=== PATIENT | male | born 1995 | race Two or more races ===

== ENCOUNTER → 2020-12-30 13:38 | Outpatient (BNVA) | payer MEDICAID, SELFPAY | PROVIDERS: PCP Internal Medicine ==

== ENCOUNTER → 2020-12-31 08:03 | Outpatient (BNVA) | payer MEDICAID, SELFPAY | PROVIDERS: PCP Internal Medicine; Visit Provider Surgery ==

== ENCOUNTER 2021-01-04 14:23 | Outpatient (REF) | payer MEDICAID, SELFPAY ==
[2021-01-05 12:22] LABS: H Pylori Breath Test NOT DETECTED (NOT DETECTED)
== END 2021-01-04 14:24 | disposition home or self-care (01) ==
LOC: CF 14:23
PROVIDERS: PCP Internal Medicine; Visit Provider Surgery
DX: Z11.0 Encounter for screening for intestinal infectious diseases (principal)
CPT/HCPCS: 83013; 99211

== ENCOUNTER 2021-01-13 11:59 | Outpatient (REF) | payer MEDICAID, SELFPAY ==
--- NOTE | ~2021-01-13 | XR_ITS ---
EXAMINATION: XR CHEST CLINICAL INFORMATION: Obesity COMPARISON: None TECHNIQUE: 2 views of the chest were obtained. FINDINGS: The cardiac silhouette does not appear enlarged. There is a left subclavian single chamber pacemaker with tip projecting over the ventricular apex. Hilar and mediastinal contours are unremarkable. The lungs are clear. There is no pleural effusion or pneumothorax. Bony structures are unremarkable. XR/XR chest 2V IMPRESSION: No evidence for acute disease in the chest. Left subclavian single chamber pacemaker.
--- NOTE | 2021-01-13 12:05 | ECG_ITS ---
Test Reason : E60.01 Blood Pressure : / mmHG Vent. Rate : 074 BPM Atrial Rate : 074 BPM P-R Int : 146 ms QRS Dur : 106 ms QT Int : 426 ms P-R-T Axes : 072 001 058 degrees QTc Int : 472 ms Normal sinus rhythm Normal ECG No previous ECGs available Referred By: Matias Carlson Electronically Signed By:Forrest Johnson
[2021-01-13 13:53] LABS: MANUAL DIFF FLAG NO
[2021-01-13 13:58] LABS: Basophils Percent Auto 0.4 % (0-2); Eosinophils Absolute Auto 0.2 X10*3/uL (0.0-0.4); Eosinophils Percent Auto 2.8 % (0-4); Hematocrit 41.8 % (42-52); Hemoglobin 13.4 g/dl (14.0-18.0); Imm Gran Abs Auto 0.01 X10*3/uL (0.00-0.03); Imm Gran Pct Auto 0.1 % (0.0-0.4); Lymphocytes Absolute Auto 2.4 X10*3/uL (1.2-4.9); Lymphocytes Percent Auto 28.6 % (20-40); Mean Corpuscular HGB Conc 32.1 g/dl (31.0-36.0); Mean Corpuscular Hemoglobin 24.7 pg (27.0-33.0); Mean Platelet Volume 10.5 fL (9.4-12.4); Monocytes Absolute Auto 0.6 X10*3/uL (0.1-1.2); Monocytes Percent Auto 6.6 % (2-11); Neutrophils Absolute Auto 5.1 X10*3/uL (2.0-8.3); Neutrophils Percent Auto 61.5 % (45-73); Platelet Count 261 X10*3/uL (160-400); Red Blood Count 5.43 X10*6/uL (4.60-5.80); Red Cell Distribution Width 14.7 % (11.0-16.0); White Blood Count 8.3 X10*3/uL (4.8-10.8)
[2021-01-13 14:15] LABS: Alanine Aminotransferase 36 U/L (0-40); Albumin Level 4.6 g/dL (3.5-5.0); Alkaline Phosphatase 72 U/L (39-117); Anion Gap 15 (12-20); Aspartate Amino Transferase 21 U/L (5-37); Bilirubin Total 0.5 mg/dL (0.0-1.0); Blood Urea Nitrogen 14 mg/dL (9-16); C Reactive Protein 0.59 mg/dL (< or = 0.50); Calcium 10.1 mg/dL (8.4-10.2); Carbon Dioxide 25 mmol/L (22-29); Chloride 106 mmol/L (96-108); Cholesterol 148 mg/dL; Estimated Glomerular Filt Rate > 60; Glucose Random 83 mg/dL (60-115); HDL Cholesterol 29 mg/dL; LDL Cholesterol Calculated 100 mg/dl; Potassium 4.2 mmol/L (3.3-5.1); Sodium 142 mmol/L (135-145); Total Protein 7.9 g/dL (6.5-8.0); Triglycerides 99 mg/dL
[2021-01-13 14:33] LABS: Estimated Average Glucose 74 mg/dL; Hemoglobin A1c % 4.2 %
[2021-01-13 14:36] LABS: Ferritin 162 ng/mL (20-250); TSH reflex Free T4 1.77 uIU/mL (0.32-4.0); Vitamin D 25-OH Total 14.9 ng/mL (>30)
[2021-01-13 15:05] LABS: Vitamin B12 481 pg/mL (200-900)
[2021-01-14 16:12] LABS: Calcium (PTHI) 9.9 mg/dL (8.6-10.3); PTHI 49 pg/mL (14-64)
[2021-01-17 06:32] LABS: Vitamin B1 8 nmol/L (8-30)
[2021-01-17 15:22] LABS: Zinc 89 mcg/dL (60-130)
[2021-01-18 21:17] LABS: Vitamin A 41 mcg/dL (38-98)
== END 2021-01-13 12:00 | disposition home or self-care (01) ==
LOC: HO.LAB 11:59
PROVIDERS: PCP Internal Medicine; Visit Provider Surgery
DX: E66.01 Morbid (severe) obesity due to excess calories (principal); I10 Essential (primary) hypertension; I48.91 Unspecified atrial fibrillation
CPT/HCPCS: 36415; 71046; 80053; 80061; 82306; 82607; 82728; 82746; 83036; 83525; 83970; 84425; 84443; 84590; 84630; 85025; 86140; 93005

== ENCOUNTER → 2021-01-17 08:28 | Outpatient (BNVA) | payer MEDICAID, SELFPAY | PROVIDERS: PCP Internal Medicine; Visit Provider Dietitian, Registered | DX: E66.01 Morbid (severe) obesity due to excess calories (principal); Z68.41 Body mass index [BMI] 40.0-44.9, adult | CPT/HCPCS: 97802 ==

== ENCOUNTER 2021-01-18 08:29 | Outpatient (REF) | payer MEDICAID, SELFPAY ==
--- NOTE | ~2021-01-18 | FL_ITS ---
EXAMINATION: XR FLUOROSCOPY UPPER GI WITH AIR CLINICAL INFORMATION: Severe obesity. COMPARISON: No relevant prior imaging. TECHNIQUE: Gastric and esophageal distention was achieved with oral administration of water and effervescent granules. This was followed by the administration of thick barium contrast material. Multiple images the esophagus were obtained in the upright LPO and lateral projections. The patient was then placed in the horizontal position and multiple additional views of the esophagus and stomach were obtained during and after the oral administration of regular consistency barium material. FLUOROSCOPY TIME: 1.2 minutes TOTAL DOSE: 222.6 mGy IMAGES: 61 FINDINGS: The swallowing mechanism is grossly normal. There is no evidence of an esophageal mass, diverticulum, ulceration, or fixed stricture. Mucosal surfaces are unremarkable. The lower esophageal sphincter relaxes normally. Multiple projections of the stomach reveal no abnormal finding. There is no ulceration or intraluminal mass. Rugal folds are unremarkable. Esophageal motility is normal in the horizontal position. Gastroesophageal reflux was observed to the level of the cervical esophagus in the supine position with minimal provocation. FL/FL upper GI series IMPRESSION: Gastroesophageal reflux was observed to the cervical esophagus in the supine position with minimal provocation. Otherwise unremarkable upper gastrointestinal fluoroscopic examination. No hiatal hernia.
--- NOTE | ~2021-01-18 | US_ITS ---
EXAMINATION: US COMPLETE ABDOMEN WITH LIVER ELASTOGRAPHY CLINICAL INFORMATION: Obesity COMPARISON: None. TECHNIQUE: Real-time imaging of the abdominal viscera. Noninvasive ultrasound liver fibrosis assessment is performed using Ara ElastPQ point quantification shear wave elastography (pSWE) with a C5-2 MHz transducer. Multiple elastography samples are obtained. FINDINGS: PANCREAS: Normal. The visualized pancreatic head and body are normal in appearance. The remainder of the pancreas is obscured from visualization by the overlying bowel gas. ABDOMINAL AORTA: The proximal, middle, and distal aortic segments are normal in caliber. INFERIOR VENA CAVA: Visualized portions are normal. LIVER: Liver echotexture is increased. Liver contour is normal.. No focal lesion or intrahepatic biliary duct dilatation. The liver is slightly enlarged. The right lobe measures 18 cm in length. The left lobe measures 10 cm in length. Portal flow is normal/hepatopedal Shear wave liver elastography median stiffness is 1.4 m/s (reference: normal median stiffness is 1.3 m/s or less). IQR/median stiffness to assess sampling precision is 0.23 (reference: good quality data set is IQR/median stiffness of 0.15 or less). GALLBLADDER: The gallbladder is normal in size. There are gallstones in the gallbladder. The gallbladder wall does not appear thickened. There is no pericholecystic fluid. COMMON BILE DUCT: Normal in caliber measuring 0.6 cm in diameter. RIGHT KIDNEY: Normal. No hydronephrosis. No renal calculi or focal parenchymal lesions. The kidney measures 12 cm in maximum dimension. LEFT KIDNEY: Normal. No hydronephrosis. No renal calculi or focal parenchymal lesions. The kidney measures 12 cm in maximum dimension. SPLEEN: Normal. The spleen measures 13 cm in maximum dimension. FREE FLUID: None. US/US abdomen comp w elastography IMPRESSION: 1. Impression: Echogenic enlarged liver probably representing fatty infiltration. Gallstones. 2. Liver elastography: Limited due to sampling error. REFERENCE: Society of Radiologists in Ultrasound Liver Stiffness Thresholds (2020): LIVER STIFFNESS THRESHOLDS: *Liver Stiffness equal or less than 1.3 m/s: High probability of being normal. *Liver Stiffness less than 1.7 m/s: In the absence of other known clinical signs, rules out compensated advanced chronic liver disease. *Liver Stiffness 1.7-2.1 m/s: Suggestive of compensated advanced chronic liver disease but need further test for confirmation. *Liver Stiffness over 2.1 m/s: Rules in compensated advanced chronic liver disease. *Liver Stiffness over 2.4 m/s: Suggestive of clinically significant portal hypertension. QUALITY OF DATA SET: *IQR/Median value equal or less than 0.15 implies a quality data set. *IQR/Median value over 0.15 implies a poor quality data set. SIGNIFICANT CHANGE FROM PRIOR EXAM: Significant change if liver stiffness measurement is 10% or greater from prior exam. OTHER CONSIDERATIONS: The stage of liver fibrosis may be overestimated in the setting of acute hepatitis, liver inflammation, elevated liver function tests, hepatic vascular congestion, obstructive cholestasis, non-fasting state, and infiltrative diseases such as amyloidosis and lymphoma. In some patients with NAFLD, the liver stiffness thresholds for compensated advanced chronic liver disease may be lower. In causes other than viral hepatitis and NAFLD, liver stiffness thresholds are not well established.
== END 2021-01-18 08:30 | disposition home or self-care (01) ==
LOC: HO.US 08:29
PROVIDERS: PCP Internal Medicine; Visit Provider Surgery
DX: Z01.818 Encounter for other preprocedural examination (principal); E66.01 Morbid (severe) obesity due to excess calories; K21.9 Gastro-esophageal reflux disease without esophagitis; I10 Essential (primary) hypertension; I48.91 Unspecified atrial fibrillation
CPT/HCPCS: 74240; 76705; 76981

== ENCOUNTER → 2021-01-24 08:20 | Outpatient (BNVA) | payer MEDICAID, SELFPAY | PROVIDERS: PCP Internal Medicine; Visit Provider Surgery ==

== ENCOUNTER → 2021-01-27 14:59 | Outpatient (BNVA) | payer MEDICAID, SELFPAY | PROVIDERS: PCP Internal Medicine; Referring Provider Internal Medicine; Visit Provider Internal Medicine | DX: Z01.810 Encounter for preprocedural cardiovascular examination (principal); I42.0 Dilated cardiomyopathy; E66.01 Morbid (severe) obesity due to excess calories; G47.33 Obstructive sleep apnea (adult) (pediatric); Z99.89 Dependence on other enabling machines and devices; Z98.890 Other specified postprocedural states; Z86.79 Personal history of other diseases of the circulatory system | CPT/HCPCS: 93005; 99202 ==

== ENCOUNTER → 2021-02-14 08:17 | Outpatient (BNVA) | payer MEDICAID, SELFPAY | PROVIDERS: PCP Internal Medicine; Visit Provider Surgery ==

== ENCOUNTER → 2021-03-01 08:15 | Outpatient (BNVA) | payer MEDICAID, SELFPAY | PROVIDERS: PCP Internal Medicine; Visit Provider Dietitian, Registered | DX: E66.01 Morbid (severe) obesity due to excess calories (principal); Z68.41 Body mass index [BMI] 40.0-44.9, adult | CPT/HCPCS: 97803 ==

== ENCOUNTER → 2021-03-10 07:52 | Outpatient (BNVA) | payer MEDICAID, SELFPAY | PROVIDERS: PCP Internal Medicine; Visit Provider Surgery ==

== ENCOUNTER → 2021-04-15 09:43 | Outpatient (BNVA) | payer MEDICAID, SELFPAY | PROVIDERS: PCP Internal Medicine; Visit Provider Surgery ==

== ENCOUNTER → 2021-05-20 07:21 | Outpatient (BNVA) | payer MEDICAID, SELFPAY | PROVIDERS: PCP Internal Medicine; Visit Provider Surgery ==

== ENCOUNTER → 2021-06-13 08:25 | Outpatient (BNVA) | payer MEDICAID, SELFPAY | PROVIDERS: PCP Internal Medicine; Visit Provider Surgery ==

== ENCOUNTER → 2021-06-17 13:12 | Outpatient (BNVA) | payer MEDICAID, SELFPAY | PROVIDERS: PCP Internal Medicine; Visit Provider Physician Assistant ==

== ENCOUNTER 2021-06-21 10:56 | Inpatient (IN) | payer MEDICAID, SELFPAY ==
[2021-06-15 14:07] LABS: MANUAL DIFF FLAG NO
[2021-06-15 14:09] LABS: Basophils Percent Auto 0.4 % (0-2); Eosinophils Absolute Auto 0.3 X10*3/uL (0.0-0.4); Eosinophils Percent Auto 3.6 % (0-4); Hematocrit 40.6 % (42-52); Hemoglobin 13.2 g/dl (14.0-18.0); Imm Gran Abs Auto 0.02 X10*3/uL (0.00-0.03); Imm Gran Pct Auto 0.3 % (0.0-0.4); Lymphocytes Absolute Auto 2.3 X10*3/uL (1.2-4.9); Lymphocytes Percent Auto 30.5 % (20-40); Mean Corpuscular HGB Conc 32.5 g/dl (31.0-36.0); Mean Corpuscular Hemoglobin 25.3 pg (27.0-33.0); Mean Corpuscular Volume 77.9 fL (80-98); Mean Platelet Volume 10.5 fL (9.4-12.4); Monocytes Absolute Auto 0.5 X10*3/uL (0.1-1.2); Monocytes Percent Auto 6.6 % (2-11); Neutrophils Absolute Auto 4.5 X10*3/uL (2.0-8.3); Neutrophils Percent Auto 58.6 % (45-73); Platelet Count 239 X10*3/uL (160-400); Red Blood Count 5.21 X10*6/uL (4.60-5.80); Red Cell Distribution Width 14.8 % (11.0-16.0); White Blood Count 7.7 X10*3/uL (4.8-10.8)
[2021-06-15 14:15] LABS: INTERNATIONAL NORM RATIO 1.3 (0.9-1.1); Prothrombin Time 15.2 SEC (9.9-13.0)
[2021-06-15 14:18] LABS: Partial Thromboplastin Time 39.7 SEC (24.1-38.0)
[2021-06-15 14:23] LABS: Estimated Average Glucose 74 mg/dL; Hemoglobin A1c % 4.2 %
[2021-06-15 14:33] LABS: Alanine Aminotransferase 28 U/L (0-40); Albumin Level 4.4 g/dL (3.5-5.0); Alkaline Phosphatase 73 U/L (39-117); Anion Gap 10 (12-20); Aspartate Amino Transferase 15 U/L (5-37); Bilirubin Total 0.3 mg/dL (0.0-1.0); Blood Urea Nitrogen 9 mg/dL (9-16); C Reactive Protein 0.61 mg/dL (< or = 0.50); Calcium 9.8 mg/dL (8.4-10.2); Carbon Dioxide 29 mmol/L (22-29); Chloride 106 mmol/L (96-108); Cholesterol 130 mg/dL; Estimated Glomerular Filt Rate > 60; Glucose Random 98 mg/dL (60-115); HDL Cholesterol 32 mg/dL; LDL Cholesterol Calculated 84 mg/dl; Potassium 4.3 mmol/L (3.3-5.1); Sodium 141 mmol/L (135-145); Total Protein 7.3 g/dL (6.5-8.0); Triglycerides 70 mg/dL
[2021-06-15 14:53] LABS: TSH reflex Free T4 1.27 uIU/mL (0.32-4.0)
[2021-06-16 08:44] VITALS: BMI 41.5
--- NOTE | 2021-06-16 14:25 | HO.ANESPROP2 ---
Documented by User: Cathi Thomas NP 06/20/21 08:25 HPI - Anesthesia Eval Consult details Narrative: 25yo M for Gastrectomy Sleeve,EGD,poss diaphragmatic hernia,poss ventral hernia,poss open Caridiac cleared ([place] [facility]) ICD in situ (cardiomyopathy, EF 20-30 in November) Eliquis for afib. Changed to Arixtra by Dr Vikas Dodson reviewed with Dr Duke MONTILLA Active Problems Active Problems: All Active Problems (Updated 06/16/21 @ 08:49 by Mireya Bernardo RN) Mild depression (Acute) Vitamin D deficiency (Acute) Vitamin B12 deficiency (Acute) Preoperative cardiovascular examination (Acute) GARRISON on CPAP (Acute) Status post ablation of atrial flutter (Acute) Dilated cardiomyopathy (Acute) Atrial fibrillation (Acute) Hypertension (Acute) Morbid obesity (Acute) Past Medical History Medical History (Updated 06/21/21 @ 14:20 by Matias Carlson MD) Atrial fibrillation Cholelithiasis COVID-19 vaccine series completed Depression Dilated cardiomyopathy GERD (gastroesophageal reflux disease) Hypertension Morbid obesity GARRISON on CPAP Family History Family History Mother Asthma Father No problems noted. Sister No problems noted. Sister No problems noted. Family history of problems with anesthesia: No Surgical History Surgical History History of surgery Hx of heart surgery Status post ablation of atrial flutter History of Problems with Anesthesia: No Social History Social History Are you a primary rn long term care to a significant other at home: No Do you presently have visiting nurse or other home services: No Alcohol intake: never Patient Tobacco Use Status: Never used Tobacco Use of substances other than those prescribed or required for medical reasons: No Have you been hit, kicked, punched, or otherwise hurt by someone within the past year? If so, by whom?: No Are you DNR?: No Advance Directives: No (states is his mother Zina Saunders-does not have official HCP form) Advance Directives Information Provided: Yes Advance Directives on File: No (HCP form given to patient day of PAT appt-to bring back DOS) Recently lost weight without trying: No Eating poorly because of decreased appetite: No Nutrition Risks: No Nutritional Risk Poor oral hygiene: No Narrative Narrative: No recent illness >4mets with >1mile walking Meds Allergies Allergy/AdvReac Type Severity Reaction Status Date / Time No Known Allergies Allergy Verified 06/21/21 10:58 Home Medications Medication Instructions Recorded Confirmed Last Taken Type sacubitril 24 mg-valsartan 26 mg 1 tab PO BID 12/31/20 06/16/21 06/21/21 09:30 History tablet (Entresto) spironolactone 25 mg tablet 25 mg PO DAILY 12/31/20 06/16/21 Unknown History metoprolol succinate 200 mg 200 mg PO DAILY 01/27/21 06/16/21 06/21/21 09:30 History tablet,extended release 24 hr apixaban 5 mg tablet (Eliquis) 1 tab PO BID 06/15/21 06/16/21 06/14/21 History Exam Exam Date and Time: June 16, 2021 1425 Height,Weight and Vital Signs: Height 6 ft Weight 138.856 kg Pertinent Lab Results Pertinent Lab Results: Laboratory Tests 06/15/21 06/15/21 06/15/21 13:50 13:50 13:50 WBC 7.7 RBC 5.21 Hgb 13.2 L Hct 40.6 L MCV 77.9 L MCH 25.3 L MCHC 32.5 RDW 14.8 Plt Count 239 MPV 10.5 Immature Gran % (Auto) 0.3 Neut % (Auto) 58.6 Lymph % (Auto) 30.5 [place] % (Auto) 6.6 Eos % (Auto) 3.6 Baso % (Auto) 0.4 Lymph # (Auto) 2.3 [place] # (Auto) 0.5 Eos # (Auto) 0.3 Baso # (Auto) 0.0 Abs Immat Gran (auto) 0.02 Absolute Neuts (auto) 4.5 Absolute Nucleated RBC 0.000 Nucleated RBC % (auto) 0.0 PT 15.2 H INR 1.3 H APTT 39.7 H Sodium 141 Potassium 4.3 Chloride 106 Carbon Dioxide 29 Anion Gap 10 L BUN 9 Creatinine 0.92 Estim Creat Clear Calc TNP Estimated GFR > 60 Random Glucose 98 Estimat Average Glucose Hemoglobin A1c % Calcium 9.8 Total Bilirubin 0.3 AST 15 ALT 28 Alkaline Phosphatase 73 C-Reactive Protein 0.61 H Total Protein 7.3 Albumin 4.4 Triglycerides 70 Cholesterol 130 LDL Cholesterol, Calc 84 HDL Cholesterol 32 TSH 1.27 Blood Type Antibody Screen 06/15/21 06/15/21 13:50 13:50 WBC RBC Hgb Hct MCV MCH MCHC RDW Plt Count MPV Immature Gran % (Auto) Neut % (Auto) Lymph % (Auto) [place] % (Auto) Eos % (Auto) Baso % (Auto) Lymph # (Auto) [place] # (Auto) Eos # (Auto) Baso # (Auto) Abs Immat Gran (auto) Absolute Neuts (auto) Absolute Nucleated RBC Nucleated RBC % (auto) PT INR APTT Sodium Potassium Chloride Carbon Dioxide Anion Gap BUN Creatinine Estim Creat Clear Calc Estimated GFR Random Glucose Estimat Average Glucose 74 Hemoglobin A1c % 4.2 Calcium Total Bilirubin AST ALT Alkaline Phosphatase C-Reactive Protein Total Protein Albumin Triglycerides Cholesterol LDL Cholesterol, Calc HDL Cholesterol TSH Blood Type A Positive Antibody Screen NEGATIVE Narrative Narrative: EKG 12/2020 Vent. Rate : 074 BPM ? ? Atrial Rate : 074 BPM ?? P-R Int : 146 ms? QRS Dur : 106 ms ? ? QT Int : 426 ms ? ? ? P-R-T Axes : 072 001 058 degrees ?? QTc Int : 472 ms ? Normal sinus rhythm Normal ECG No previous ECGs available ICD Interr 05/2021 Normal lead and device function. No VT/VF. No shocks. ECHO 11/2020 Poorly visualized LV. Severely reduced LV systolic function, EF 20-30% Global hypokinesis without significant regional variation Normal LV diastolic function Normal LV size. Mildly increased LV wall thickness Normal RV systolic function. Normal RV size No significant valvular abnormalities Probably similiar to February 2020, but image quality poor Airway Mallampati Class: II TM Dist: >3cm Neck ROM: Full Loose/Missing/Broken Teeth: No Heart: RR Lungs: CTAB Assessment and Plan Assessment Anesthesia Assessment: Anesthesia Plan Discussed and PAT Visit Final Anesthetic Review Family History of Problems with Anesthesia: No History of Problems with Anesthesia: No Documented by User: Jessee Mcintosh MD 06/21/21 15:19 [facility] Past Medical History Medical History (Updated 06/21/21 @ 14:20 by Matias Carlson MD) Atrial fibrillation Cholelithiasis COVID-19 vaccine series completed Depression Dilated cardiomyopathy GERD (gastroesophageal reflux disease) Hypertension Morbid obesity GARRISON on CPAP Family History Family History Mother Asthma Father No problems noted. Sister No problems noted. Sister No problems noted. Surgical History Surgical History History of surgery Hx of heart surgery Status post ablation of atrial flutter Social History Social History Are you a primary rn long term care to a significant other at home: No Do you presently have visiting nurse or other home services: No Alcohol intake: never Patient Tobacco Use Status: Never used Tobacco Use of substances other than those prescribed or required for medical reasons: No Have you been hit, kicked, punched, or otherwise hurt by someone within the past year? If so, by whom?: No Are you DNR?: No Advance Directives: No (states is his mother Zina Saunders-does not have official HCP form) Advance Directives Information Provided: Yes Advance Directives on File: No (HCP form given to patient day of PAT appt-to bring back DOS) Recently lost weight without trying: No Eating poorly because of decreased appetite: No Nutrition Risks: No Nutritional Risk Poor oral hygiene: No Meds Allergies Allergy/AdvReac Type Severity Reaction Status Date / Time No Known Allergies Allergy Verified 06/21/21 10:58 Home Medications Medication Instructions Recorded Confirmed Last Taken Type sacubitril 24 mg-valsartan 26 mg 1 tab PO BID 12/31/20 06/16/21 06/21/21 09:30 History tablet (Entresto) spironolactone 25 mg tablet 25 mg PO DAILY 12/31/20 06/16/21 Unknown History metoprolol succinate 200 mg 200 mg PO DAILY 01/27/21 06/16/2106/21/21 09:30 History tablet,extended release 24 hr apixaban 5 mg tablet (Eliquis) 1 tab PO BID 06/15/21 06/16/21 06/14/21 History Assessment and Plan Assessment Anesthesia Assessment: Anesthesia Plan Discussed (Preinduction A-line, deactivate ICD w/ magnet per cardiology, medically optimized per cardiology; cardiology and Brett Sci rep aware of ICD status ) Final Anesthetic Review NPO: Yes ASA Class: IV Final Preanesthetic Review: No Changes in Pt Med Stat, Meds/Allgs Chart Reviewed, Consent Obtained/Reviewed and Anes Risks/Benef Reviewed Patient Risk: High Procedure Risk: Intermediate Anesthetic Plan Anesthetic Plan: GA Disposition: Standard PACU
[2021-06-16 14:36] VITALS: BP 120/66; PULSE 72; RESP 18; O2SAT 98; BMI 42.7
[2021-06-17 05:25] LABS: Insulin Level Total 27.9 uIU/mL
--- NOTE | 2021-06-19 21:02 | MHC.SHP ---
Pre-Procedural Eval Section A Date of Service: 06/19/21 The patient is an INPATIENT: Yes Section B Chief Complaint: obesity Relevant Family History (Specify if Yes): No Relevant Social History: None Present Medications: None Medical History: No relevant PMH History of Previous Operations: No relevant previous surgery Allergies: Allergies Allergy/AdvReac Type Severity Reaction Status Date / Time No Known Allergies Allergy Verified 06/13/21 11:08 Review of Systems Sugical H&P ROS: Negative: Constitution, Cardiovascular, Respiratory, Neurological, Psychiatric, Hem-Onc, Allergic/Immunologic, Gastrointestinal, Genitourinary, Musculoskeletal, Integumentary, Endocrine and Eyes/Ears/Nose/Throat Exam Surgical H&P Exam: Normal: HEENT, Normal: Heart, Normal: Lungs, Normal: Extremities, Normal: Abdomen, Normal: Skin and Normal: Neurological Plan Diagnosis/Plan: Unchanged I have reviewed the history and physical and performed a pertinent physical examination on my patient. No changes have occurred unless specified.
[2021-06-21] VITALS (12 sets, daily range): BP systolic 119–154; BP diastolic 51–79; PULSE 69–86; RESP 16–17; TEMP 36–36.4; O2SAT 97–100
[2021-06-21 11:38] LABS: COVID-19 Test Negative (Negative)
[2021-06-21] MEDS: Lactated Ringers 1,000 ML 999 ML IV (12:26)
--- NOTE | 2021-06-21 14:10 | PM.OP ---
Brief Operative Note Date of Service: 06/21/21 Pre-op diagnosis: Morbid obesity and comorbidities (see below) Post-op diagnosis: same Procedure: INITIAL PATIENT BMI ON PRESENTATION AT OUR OFFICE: 46.8 kg/m2 LAST BMI BEFORE SURGERY: 41.2 kg/m2 COMORBIDITIES: hypertension, atrial fibrilation,sleep apnea, cholelithiasis, liver steatosis, GERD, cardiomyopathy The patient participated in an intensive weekly lifestyle ?intervention and exercise program during which the patient ?has lost between the initial office visit and the last preoperative visit 41.2 lbs, or 11.95% of initial actual body weight. The patient met the BMI-criteria for bariatric surgery based on the BMI on initial presentation. The patient should not be penalized for achieving such weight loss because ?it is not sustainable long-term without surgical intervention and it was achieved in preparation for bariatric surgery ?under my direction and based on my published research ([email or web address]) ?that a 10% preoperative weight loss improves long-term weight loss after surgery and reduces perioperative complications.? Insurance carriers such as [facility] have endorsed my recommendations ?and have included in their policies criteria to include a 10% preoperative weight loss requirement. PROCEDURE: Esophago-gastroscopy and laparoscopic gastropexy INDICATIONS: This is a 25 year-old male who was electively scheduled for laparoscopic, possibly open sleeve gastrectomy. The risks and complications of the procedure were discussed with the patient in advance, particularly the possibility of ; pulmonary embolism; staple line leak; bleeding; GERD; cardiac, pulmonary, or renal complications; as well as long-term problems such as insufficient weight loss, vitamin deficiency, strictures, or ulcers. The patient understood all the risks, and was in agreement to proceed with surgery. DESCRIPTION OF PROCEDURE: After informed consent was obtained from the patient, the patient was given preoperative antibiotics, and was transferred to the operating room. After successful induction of general anesthesia, pneumatic compressive devices were placed on both lower extremities. An upper endoscopy was performed next. The oropharynx and esophagus appeared to be within normal limits. There was a diaphragmatic hernia present of moderate size consistent with the findings of the preoperative upper GI. The stomach was entered. Then after all fluid and air were suctioned and the stomach was fully decompressed, the scope was withdrawn and secured in the mid esophagus. The patient was then prepped and draped in the usual sterile manner, and abdominal access was established at the right upper quadrant with the Adelso technique. A 12 mm blunt port was inserted, and the abdomen was insufflated with CO2 to a pressure of 15 mmHg. Under direct visualization, additional ports were placed, specifically two 5 mm Versi-step ports to the left upper quadrant, and a 5 mm Versi-Step port to the right upper quadrant. 1% lidocaine plain was used to infiltrate all port sites as well as all fascia defects. Following that, the patient was placed in a steep reverse Trendelenburg position. An additional 5 mm port was placed to the right flank for the Mediflex retractor that was used to retract the left lobe of the liver. The gastro-esophageal fat pad was opened with the ultrasonic device (Thunderbeat, Olympus) and the anterior esophagus and hiatus were exposed. The angle of His was opened with the ultrasonic device the fundus of the stomach from any diaphragmatic and splenic attachments. I then opened the gastrocolic ligament between the transverse colon and the greater curvature of the stomach with the ultrasonic device to enter the lesser sac and facilitate the ligation of the short gastric vessels. I started at a mid-point along the greater curvature and using the Thunderbeat, all short gastric vessels were divided all the way to the angle of His until the left re was completely dissected at its entirety. I then divided the gastro-colic ligament distally to a distance of about 3-4 cm proximal to the esophagus.? The stomach was then divided transversely with one Endo RADHA-45 purple and four RADHA-60 articulating orange loads using the AEON stapler and loads. Every effort was made that the gastric sleeve had a tubular shape and an even caliber throughout. Once the sleeve resection was completed, the staple line of the gastric sleeve was reinforced with Hemoclips. The resected stomach was retrieved without difficulty from the Adelso port. A gastropexy was then performed in order to prevent postoperative GERD and partial gastric volvulus. Several interrupted 2.0 Surgidac sutures were placed between the sleeve's staple line and the previously divided greater omentum and gastro-colic ligament using the Endo-Stitch device. ?An upper endoscopy was performed. There was no narrowing at the GE junction. The scope was easily advanced all the way to the pylorus which was clearly visualized. There was no narrowing anywhere and the sleeve's caliber was even throughout. The sleeve's staple line was inspected and there was no evidence of ischemia, bleeding or dehiscence. At that point the gastroscope was withdrawn from the patient?s mouth while we were decompressing the bowel and the stomach from any remaining air. I looked into the lesser sac to see how the sleeve was situating and it was situating well. There was no bleeding from the staple line, spleen, or short gastric vessels. The Mediflex retractor was removed, and the undersurface of the liver was inspected and there was no bleeding. The patient was placed in supine position. I closed the fascial defect of the 12 mm port site with a figure of eight #1 Polysorb suture. Then 100 cc 0.25 % Marcaine plain with 10 mg of Dexamethasone were used to infiltrate the fascial closure as well as all skin incisions. At this point, the abdomen was deflated, all ports were removed under direct vision, and no bleeding was noted from any of the port sites. The skin incisions were irrigated with saline and were closed with 4-0 absorbable monofilament sutures. Steri-Strips and OpSites were used to cover all incisions. The patient was extubated and was transferred in stable condition to the recovery room for further care. I was present and performed all leonard parts of the procedure. Ms. Alexisson was the photography assistant. There were no residents to assist with this case. Saw Carlson MD, PhD, FACS Surgeon: Matias Carlson MD Anesthesia: GETA, local and other (TAP block) Was an Playground Official used for this Procedure?: No Playground Official: Yesenia Eastman Estimated blood loss (mL): 10 IV fluids (mL): 1,500 Urine output (mL): 0 Pathology: other (Stomach) Condition: stable Disposition: PACU
--- NOTE | 2021-06-21 14:17 | PM.PNGS ---
Subjective Subjective Date of Service: 06/22/21 Interval history: Patient has mild incisional pain, but was able to ambulate and use the incentive spirometer. He is tolerating phase 1 bariatric diet Physical Exam Vital Signs: Vital Signs: Last Vital Signs Temp 97.4 F 06/21/21 12:09 Pulse 69 06/21/21 12:09 Resp 16 06/21/21 12:09 BP 127/68 06/21/21 12:09 Pulse Ox 98 06/21/21 12:09 Body Mass Index 42.7 GI: Inspection: Yes normal to inspection and Yes incision (clean, dry and intact) Extrem: Right lower extremity: normal to inspection (no calf tenderness) Left lower extremity: normal to inspection (no calf tenderness) Procedures Date of Service Date of Service: 06/22/21 Progress Note: A&P Assessment and plan (1) Morbid obesity: Status: Acute Assessment and Plan: s/p laparoscopic sleeve gastrectomy and gastropexy Doing well Check am labs. If OK, will discharge home? (2) Hypertension: Status: Acute (3) Dilated cardiomyopathy: Status: Acute (4) Atrial fibrillation: Status: Acute (5) GARRISON on CPAP: Status: Acute (6) Mild depression: Status: Acute (7) Cholelithiasis: Status: Acute (8) GERD (gastroesophageal reflux disease): Status: Acute (9) S/P laparoscopic sleeve gastrectomy: Status: Acute Fall Risk Details Current Medications: Current Medications Lactated Ringer's (Lr) 1,000 mls @ 0 mls/hr IVCONT .Q0M MUMTAZ Time Spent With Patient Time: Total time spent is greater than 50% in coordination of care (as documented) at patient's floor/unit and/or counseling patient: Time with patient: less than 15 minutes Quality Stroke Does the patient have a stroke diagnosis?: No VTE Prior VTE?: No VTE Risk Level:: Surgical - moderate VTE Device Contraindication: N/A - Device Ordered VTE Drug Contraindication: Treatment Not Indicated
--- NOTE | 2021-06-21 17:46 | PM.DS ---
DS: Providers Provider Date of Service: 06/23/21 Date of admission: 06/21/21 10:56 Primary care physician: Justine Ritter MD DS: Diagnosis Discharge Diagnosis (1) Morbid obesity: Status: Acute (2) Hypertension: Status: Acute (3) Dilated cardiomyopathy: Status: Acute (4) Atrial fibrillation: Status: Acute (5) GARRISON on CPAP: Status: Acute (6) Mild depression: Status: Acute (7) Cholelithiasis: Status: Acute (8) GERD (gastroesophageal reflux disease): Status: Acute DS: Summary Hospital Course Hospital Course: ADMITTING DIAGNOSIS: morbid obesity, cardiomyopathy, a flutter, HTN, GARRISON DISCHARGE DIAGNOSIS: same, s/p laparoscopic sleeve gastrectomy PAST SURGICAL HISTORY: cardiac catheterization, endarterectomy, cardiac ablation PROCEDURE: upper endoscopy, laparoscopic sleeve gastrectomy DISCHARGE SUMMARY: History of Present Illness: The patient is a 25 year-old woman with a BMI of 46.7 kg/m2 and associated co-morbidities as described above. The patient had extensive work-up,lost 38.6lbs preoperatively and was electively scheduled for laparoscopic, possible open sleeve gastrectomy and gastropexy. Risks and complications of the surgery were discussed with the patient in advance, particularly the possibility of , pulmonary embolism, anastomotic leak, bleeding, bowel injury, GERD, cardiac, renal or pulmonary complications. The patient understood all the risks and was in agreement with the surgical plan. Hospital Course: The patient underwent an uneventful laparoscopic sleeve gastrectomy with gastropexy and repair of diaphragmatic hernia on the day of admission. Postoperatively, the patient was transferred to the surgical floor. The patient received IV Acetaminophen and IV dilaudid for pain control. Patient was started on bariatric phase 1 diet POD #0. On postoperative day one, the patient was feeling well without nausea, vomiting, fevers, or tachycardia. The patient had some mild incisional pain and the abdomen was soft. On the morning of postoperative day one, the patient was continued on 1 ounce of water or ice every half hour. During the day, the patient did fairly well, having some incisional pain, but able to ambulate adequately and to tolerate liquids well. Since the patient is doing well, we decided that the patient was ready to be discharged. The patient was given instructions to follow-up with me next week and to call my office for any fever over 101, persistent abdominal pain, nausea, vomiting, GERD, symptoms of DVT such as calf tenderness, or leg swelling, or pulmonary embolism such as chest pain or shortness of breath. The patient was also instructed to drink 40-60 ounces of liquids per day using the 1-ounce cups. The patient had been given prescriptions for Tylenol for pain, Zofran prn for nausea, and pantoprazole and carafate previously. The patient was encouraged to ambulate and use the incentive spirometer. The patient was allowed to shower, but no baths, and encouraged to stay active at home. All of these instructions were given to the patient personally. All questions were answered and the patient understood all instructions, the instructions were also given to the patient in print. Time Spent with Patient Time attestation: Total time spent providing and/or coordinating discharge services: Discharge coordination time: Less than 30 minutes Quality: Stroke Does the patient have a stroke diagnosis?: No Physical Exam Vital Signs: Vital Signs: Last Vital Signs Temp 97.0 F 06/21/21 17:30 Pulse 82 06/21/21 17:35 Resp 17 06/21/21 17:35 BP 150/76 H 06/21/21 17:35 Pulse Ox 100 06/21/21 17:35 Body Mass Index 42.7 DS: Data Data Completed and Pending Pending studies at discharge: Pending at discharge 06/21/21 17:08 Surgical [PTH] Routine Labs on day of discharge: Laboratory Results - last 24 hr 06/21/21 11:05 COVID-19 ([facility]) Negative COVID-19 Clin Com See Note Discharge Plan Discharge Anticipated Discharge Date/Time: 06/22/21 10:39 Patient Disposition: Home, Self-Care Discharge Diagnosis: stable s/p sleeve gastrectomy Referrals: Justine Islas MD [Primary Care Provider] - 1 Week Discharge Medications: Continued spironolactone 25 mg tablet 25 mg PO DAILY RF: 0 Entresto 24-26 mg tablet 1 tab PO BID RF: 0 metoprolol succinate 200 mg tablet extended release 24 hr 200 mg PO DAILY RF: 0 pantoprazole 40 mg tablet,delayed release (DR/EC) 40 mg PO DAILY Qty: 30 RF: 2 sucralfate 100 mg/mL suspension 10 ml PO BID Qty: 400 RF: 2 ondansetron HCl [Zofran] 4 mg tablet 4 mg PO Q12H Qty: 20 RF: 0 Held Eliquis 5 mg tablet 1 tab PO BID RF: 0 Hold Instructions: Resume on 07/01/21. fondaparinux 2.5 mg/0.5 mL syringe 2.5 mg subcut Q24H Qty: 5 RF: 0 Hold Instructions: Resume on 06/25/21. Discontinued polyethylene glycol 3350 [Miralax] 17 gram powder in packet 17 g PO DAILY Qty: 14 RF: 0 Discharge Orders: Discharge Order (Routine); Ordered 06/22/21 Ordered By: Matias Carlson Diet: other Activity on Discharge: No heavy lifting Stand Alone Forms: Patient Portal Discharge page Care Plan Goals: weight loss Health Concerns: morbid obesity, cardiomyopathy Plan of Treatment: No tub baths, sex or returning to work until discussed at first post op appointment. No exercise, alcohol, tobacco or illegal drug use. Continue to use incentive spirometer hourly while awake. Walk in home for 5- 10 minutes every 2 hours during the first week. Continue phase 1 diet today and start phase 2 diet tomorrow morning. Follow all instructions in the bariatric handbook and call with any questions. 1. Please call your doctor or come back to the emergency room should any new symptoms arise. 2. You will receive a courtesy call from [facility] 24-48 hours after discharge. 3. Activity: abstain from alcohol, practice limited stair climbing, no bending, no driving, no exercise, no illicit substances, no lifting, no sex, no tub bath, no work. 4. Diet: continue as discussed with Dr. Carlson. 5. Dressing Change/Wound Care: Your incision is covered by surgical glue. If the area is tender, you may apply an ice pack for short intervals (no more than 20 minutes on, followed by at least 20 minutes off). Do not apply heat. Do not use creams, lotions, or topical antibiotics unless instructed to do so by your surgeon. These can cause infection or allergic reaction. 6. Call your doctor if: - Your temperature exceeds 101.5 F - You experience excessive pain or swelling - You have an unexpected reaction to medication - You have excessive bleeding - You experience continued vomiting/nausea - Your incision begins to separate - Your incision shows signs of infection such as increased redness, swelling, excessive pain, heat, or drainage (light blood or clear fluid is normal) 7. General instructions: No lifting greater than 5 lbs for the next 4 weeks[address] driving within 24 hours of taking narcotic pain medications. If you do not move your bowels in the next 2 days, please take milk of magnesia over the counter. Please follow the post op diet and do not advance your diet until you are seen in the office in about 2 weeks. Please walk around your home every hour or two to prevent blood clots from forming in your legs. You do not need to wake from sleeping to walk. Please sleep in a bed or couch to prevent kinking at the hips and knees. Please take your incentive spirometer (your lung bobbin coil winder) home with you and use it for the next few days to prevent pneumonias. You may shower, no hot tubs, baths or swimming pools. Please call the office with any questions or concerns such as increasing abdominal pain, fever, chills, shortness of breath, chest pain, leg pain or swelling, or redness or drainage from your incisions. Please stay on stage 3 diet which includes sugar free clear liquids such as ice pops and jello and broth and crystal light. Avoid all carbonation. Please drink 3 protein shakes with at least 25-30 grams of protein daily or 3 of the Celebrate 4:1 shakes which can be purchased in our office. The Celebrate shakes have all of the bariatric vitamins you need if you consume these shakes. If you are drinking other protein shakes, you will need to purchase the Celebrate multivitamins and calcium that we provide in the office (they will provide all the vitamins you need). Please make sure you are consuming at least 40-60 ounces of water in addition to your 3 protein shakes daily. Do not hesitate to contact the office with any questions at . Travel after surgery was reviewed. The patient has not disclosed any travel plans during the first 30 days after surgery and they have been advised that within the first 30 days after surgery any bus, plane, train or car travel over 2 hours in duration is contraindicated due to the possibility of developing blood clots from immobility. Any travel, needs to include periods of ambulation of 10 minutes in duration every 2 hours. The patient was instructed to discuss any plans for travel during this period with their bariatric surgeon. Assessment: stable post op sleeve gastrectomy Discharge Date/Time: 06/22/21 14:53
[2021-06-21 18:40] LABS: Hematocrit 42.6 % (42-52); Hemoglobin 14.2 g/dl (14.0-18.0)
[2021-06-21] MEDS: Famotidine/PF 20 MG/2 ML VIAL IVPUSH ×2 (18:46→21:08)
[2021-06-21 18:54] LABS: Anion Gap 19 (12-20); Blood Urea Nitrogen 8 mg/dL (9-16); Calcium 9.5 mg/dL (8.4-10.2); Carbon Dioxide 20 mmol/L (22-29); Chloride 106 mmol/L (96-108); Creatinine Clr Calc Pharmacy 151.9; Estimated Glomerular Filt Rate > 60; Glucose Random 140 mg/dL (60-115); Potassium 4.8 mmol/L (3.3-5.1); Sodium 140 mmol/L (135-145)
[2021-06-21] MEDS: ceFAZolin Sodium/Dextrose,Iso 2 GM/50 ML PIGGYBACK IV (21:06)
[2021-06-22] MEDS: ondansetron HCL 4 MG/2 ML VIAL IVPUSH ×2 (00:46→06:33)
[2021-06-22] MEDS: Metoclopramide HCl 10 MG/2 ML VIAL IVPUSH (03:20)
[2021-06-22 04:00] VITALS: BP 121/60; PULSE 88; RESP 17; TEMP 36.9; O2SAT 95
[2021-06-22 05:52] LABS: Basophils Percent Auto 0.1 % (0-2); Hematocrit 43.3 % (42-52); Hemoglobin 14.1 g/dl (14.0-18.0); Imm Gran Abs Auto 0.03 X10*3/uL (0.00-0.03); Imm Gran Pct Auto 0.3 % (0.0-0.4); Lymphocytes Absolute Auto 0.8 X10*3/uL (1.2-4.9); Lymphocytes Percent Auto 7.6 % (20-40); MANUAL DIFF FLAG SCAN; Mean Corpuscular HGB Conc 32.6 g/dl (31.0-36.0); Mean Corpuscular Hemoglobin 24.9 pg (27.0-33.0); Mean Corpuscular Volume 76.4 fL (80-98); Mean Platelet Volume 10.7 fL (9.4-12.4); Monocytes Absolute Auto 0.2 X10*3/uL (0.1-1.2); Monocytes Percent Auto 1.9 % (2-11); Neutrophils Absolute Auto 9.3 X10*3/uL (2.0-8.3); Neutrophils Percent Auto 90.1 % (45-73); Platelet Count 244 X10*3/uL (160-400); Red Blood Count 5.67 X10*6/uL (4.60-5.80); Red Cell Distribution Width 14.5 % (11.0-16.0); SCAN SMEAR FLAG 1; White Blood Count 10.3 X10*3/uL (4.8-10.8)
[2021-06-22 06:07] LABS: Anion Gap 15 (12-20); Blood Urea Nitrogen 8 mg/dL (9-16); Calcium 9.7 mg/dL (8.4-10.2); Carbon Dioxide 23 mmol/L (22-29); Chloride 105 mmol/L (96-108); Creatinine Clr Calc Pharmacy 194.2; Estimated Glomerular Filt Rate > 60; Glucose Random 112 mg/dL (60-115); Potassium 4.2 mmol/L (3.3-5.1); Sodium 139 mmol/L (135-145)
[2021-06-22 06:11] LABS: SLIDE REVIEW VERIFIED
[2021-06-22] MEDS: Lactated Ringers 1,000 ML 90 ML IVCONT (06:34)
[2021-06-22 07:35] VITALS: BP 119/57; PULSE 89; RESP 20; TEMP 36.6; O2SAT 98
[2021-06-22] MEDS: Metoprolol Succinate ER 100 MG TAB.ER.24H 200 MG PO (08:55)
[2021-06-22] MEDS: Famotidine/PF 20 MG/2 ML VIAL IVPUSH (08:55)
[2021-06-22] MEDS: Sacubitril/Valsartan 24/26 1 TAB TABLET PO (08:58)
--- NOTE | 2021-06-22 10:14 | MHC.CM.PN ---
EMR REVIEWED, PT ADMITTED S/P LAP SLEEVE GASTRECTOMY, PT REPORTS HE LIVES W/BOTH PARENTS, IS INDEPENDENT W/ALL CARE, HAS A CPAP AND ICD, PT DENIES HOME SERVICES AND REPORTS HIS PARENTS CAN ASSIST IF NECESSARY. PT VERIFIES PCP IS [facility] AND COMPLETED A HCP W/CM, PT PROVIDED EDUCATIONAL INFO, ORIGINAL AND 2 COPIES, COPY UPLOADED TO [employer] AND PLACED IN CHART. D/C PLAN: HOME TODAY SELF-CARE, FAMILY FOR TRANSPORT HCP: JULIAN FOY (PARENT)[phone] ELVIA VAUGHN (PARENT) [phone]
--- NOTE | 2021-06-22 10:23 | P.CONCA_ITS ---
History of Present Illness History of Present Illness Date of Service: 06/22/21 Chief complaint: obesity Narrative: This is a cardiology consultation regarding perioperative cardiac care. Patient underwent laparoscopic sleeve gastrectomy and gastropexy yesterday. He states that he is doing well. No specific cardiac complaints like shortness of breath or chest pains or palpitations or infection or anything else. He has a history of nonischemic cardiomyopathy, atrial flutter status post ablation; also has a primary prevention ICD in place. Review of Systems Review of Systems: Yes all other systems are reviewed and are negative Cardiovascular: Cardiovascular: Reports as per HPI, Reports no additional cardiovascular complaints, Denies acrocyanosis, Denies cool extremities, Denies painful fingertips, Denies chest pain, Denies chest pain at rest, Denies diaphoresis, Denies syncope, Denies irregular heart rhythm, Denies claudication, Denies leg edema, Denies lightheadedness, Denies palpitations and Denies dyspnea Respiratory: Respiratory: Denies dyspnea Neurologic: Denies syncope Endocrine: Endocrine: Denies palpitations [facility] Past Medical History Medical History (Updated 06/21/21 @ 14:20 by Matias Carlson MD) Atrial fibrillation Cholelithiasis COVID-19 vaccine series completed Depression Dilated cardiomyopathy GERD (gastroesophageal reflux disease) Hypertension Morbid obesity GARRISON on CPAP Family History Family History Mother Asthma Father No problems noted. Sister No problems noted. Sister No problems noted. Surgical History Surgical History (Updated 06/21/21 @ 17:39 by Yesenia Eastman PA-C) History of surgery Hx of heart surgery Status post ablation of atrial flutter Social History Social History Household Members: Family Housing: House Are you a primary rn progressive care to a significant other at home: No Do you presently have visiting nurse or other home services: No Alcohol intake: never Patient Tobacco Use Status: Never used Tobacco Use of substances other than those prescribed or required for medical reasons: No Currently Displaying Signs/Symptoms of Drug Intoxication Withdrawal: No Have you been hit, kicked, punched, or otherwise hurt by someone within the past year? If so, by whom?: No Do you feel safe in your current relationship?: No Current Relationship Is there a partner from a previous relationship who is making you feel unsafe now?: No Are you DNR?: No Advance Directives: No (states is his mother Zina Saunders-does not have official HCP form) Advance Directives Information Provided: Yes Advance Directives on File: No (HCP form given to patient day of PAT appt-to bring back DOS) Do you have thoughts of harming others: None Do you have a plan to hurt others: No Plan Recently lost weight without trying: No Eating poorly because of decreased appetite: No Nutrition Risks: Poor intake 0-25% >4 days Poor oral hygiene: No service: No Current occupational status: unemployed Meds Allergies Allergy/AdvReac Type Severity Reaction Status Date / Time No Known Allergies Allergy Verified 06/21/21 10:58 Active Medications: Current Medications Famotidine (Famotidine/Pf 20 Mg/2 Ml Vial) 20 mg IVPUSH BID COUNT INCLUDES THE [facility] Last Admin: 06/22/21 08:55 Dose: 20 mg Documented by: Hydromorphone HCl (Hydromorphone Hcl 0.5 Mg/0.5 Ml Syringe) 0.25 mg IVPUSH Q4H PRN; Protocol PRN Reason: Pain, Moderate (Pain Scale 4-6 Lactated Ringer's (Lr) 1,000 mls @ 90 mls/hr IVCONT .Q11H7M COUNT INCLUDES THE [facility] Last Admin: 06/22/21 06:34 Dose: 90 mls/hr Documented by: Acetaminophen (Ofirmev) 1,000 mg in 100 mls @ 16.7 mls/hr IV .Q6H COUNT INCLUDES THE [facility] Last Admin: 06/22/21 04:55 Dose: 16.7 mls/hr Documented by: Metoclopramide HCl (Metoclopramide Hcl 10 Mg/2 Ml Vial) 10 mg IVPUSH Q6H PRN PRN Reason: Nausea Last Admin: 06/22/21 03:20 Dose: 10 mg Documented by: Metoprolol Succinate (Metoprolol Succinate Er 100 Mg Tab.Er.24h) 200 mg PO DAILY COUNT INCLUDES THE [facility]; Protocol Last Admin: 06/22/21 08:55 Dose: 200 mg Documented by: Ondansetron HCl (Ondansetron Hcl 4 Mg/2 Ml Vial) 4 mg IVPUSH Q8H COUNT INCLUDES THE [facility] Last Admin: 06/22/21 06:33 Dose: 4 mg Documented by: Sacubitril/Valsartan (Sacubitril/Valsartan 24/26 1 Tab Tablet) 1 tab PO BID COUNT INCLUDES THE [facility]; Protocol Last Admin: 06/22/21 08:58 Dose: 1 tab Documented by: Sodium Chloride (0.9 % Sodium Chloride Flush 3 Ml Syringe) 3 ml IVFLUSH QSHIFT COUNT INCLUDES THE [facility] Last Admin: 06/22/21 09:01 Dose: Not Given Documented by: Home Medications Medication Instructions Recorded Confirmed Last Taken Type sacubitril 24 mg-valsartan 26 mg 1 tab PO BID 12/31/20 06/16/21 06/21/21 09:30 History tablet (Entresto) spironolactone 25 mg tablet 25 mg PO DAILY 12/31/20 06/16/21 Unknown History metoprolol succinate 200 mg 200 mg PO DAILY 01/27/21 06/16/21 06/21/21 09:30 History tablet,extended release 24 hr apixaban 5 mg tablet (Eliquis) 1 tab PO BID 06/15/21 06/16/21 06/14/21 History Physical Exam Vital Signs: Vital Signs: Last Vital Signs Temp 98 F 06/22/21 07:35 Pulse 89 06/22/21 07:35 Resp 20 06/22/21 07:35 BP 119/57 L 06/22/21 07:35 Pulse Ox 98 06/22/21 07:35 Oxygen Flow Rate 2 06/21/21 19:14 Body Mass Index 42.7 Const: General: cooperative and no acute distress HENMT: Other: Unremarkable Neck: Neck: Yes normal visual inspection Chest: Chest palpation & inspection: normal inspection of the chest Resp: Auscultation: clear to auscultation bilaterally, no crackles and no wheezes Cardio: Jugular venous distension: no JVD Palpation: normal PMI Heart sounds: S1 normal heart sound present, S2 normal heart sound present, no gallops, no murmurs and no rubs GI: Palpation (GI): Soft to palpation Back/Spine/Pelvis: Other: unremarkable Skin: General skin exam: no rashes or lesions noted Neuro: Cranial nerves: Yes Other cranial nerve findings present Extrem: General: Yes no clubbing, cyanosis or edema Psych: Mental Status: other Results Labs and Meds Result diagrams: 06/22/21 05:36 06/22/21 05:36 Lab results: Laboratory Results - last 24 hr 06/21/21 06/21/21 06/21/21 11:05 18:21 18:21 WBC RBC Hgb 14.2 Hct 42.6 MCV MCH MCHC RDW Plt Count MPV Immature Gran % (Auto) Neut % (Auto) Lymph % (Auto) Curry % (Auto) Eos % (Auto) Baso % (Auto) Lymph # (Auto) Curry # (Auto) Eos # (Auto) Baso # (Auto) Abs Immat Gran (auto) Absolute Neuts (auto) Absolute Nucleated RBC Nucleated RBC % (auto) Smear Tech's Comments Sodium 140 Potassium 4.8 Chloride 106 Carbon Dioxide 20 L Anion Gap 19 BUN 8 L Creatinine 1.10 Estim Creat Clear Calc 151.9 Estimated GFR > 60 Random Glucose 140 H D Calcium 9.5 COVID-19 ([facility]) Negative COVID-19 Clin Com See Note 06/22/21 06/22/21 05:36 05:36 WBC 10.3 RBC 5.67 Hgb 14.1 Hct 43.3 MCV 76.4 L MCH 24.9 L MCHC 32.6 RDW 14.5 Plt Count 244 MPV 10.7 Immature Gran % (Auto) 0.3 Neut % (Auto) 90.1 H Lymph % (Auto) 7.6 L Curry % (Auto) 1.9 L Eos % (Auto) 0.0 Baso % (Auto) 0.1 Lymph # (Auto) 0.8 L Curry # (Auto) 0.2 Eos # (Auto) 0.0 Baso # (Auto) 0.0 Abs Immat Gran (auto) 0.03 Absolute Neuts (auto) 9.3 H Absolute Nucleated RBC 0.000 Nucleated RBC % (auto) 0.0 Smear Tech's Comments VERIFIED Sodium 139 Potassium 4.2 Chloride 105 Carbon Dioxide 23 Anion Gap 15 BUN 8 L Creatinine 0.86 Estim Creat Clear Calc 194.2 Estimated GFR > 60 Random Glucose 112 Calcium 9.7 COVID-19 ([facility]) COVID-19 Clin Com Assessment and Plan (1) Dilated cardiomyopathy: Status: Acute (2) Status post ablation of atrial flutter: Status: Acute (3) Morbid obesity: Status: Acute (4) S/P laparoscopic sleeve gastrectomy: Status: Acute Patient is clinically doing well post bariatric surgery. No evidence of any volume overload. Compensated from cardiac. On telemetry, his rhythm is sinus at around 90/Min. Continue his usual cardiac medications including beta blockers, Entresto and spironolactone upon discharge. With regard to Eliquis, may start when cleared by surgery. Usual follow-up with his own cooling room attendant from [facility]. Procedures Date of Service Date of Service: 06/22/21
--- NOTE | 2021-06-22 11:19 | HO.POSTANES ---
Post Anesthesia Evaluation Post Anesthesia Evaluation Vital Signs: Vital Signs Temp Pulse Resp BP Pulse Ox 06/22/21 07:35 98 F 89 20 119/57 L 98 06/22/21 04:00 98.5 F 88 17 121/60 95 06/21/21 23:48 97.4 F 83 17 119/51 L 97 Anesthesia: General Endotracheal-GETA Mental Status: Awake Pain Control: Satisfactory Nausea/Vomiting: None Hydration: Adequate Anesthesia-Related Issues: No Anes. Related Issues
[2021-06-22 11:33] VITALS: BP 124/65; PULSE 78; RESP 18; TEMP 36.2; O2SAT 97
== END 2021-06-22 14:53 | disposition home or self-care (01) | DRG 403 ==
LOC: HO.SSSA 10:59 → HO.S3 17:41
PROVIDERS: Physician Assistant; Admitting Provider Surgery; PCP Internal Medicine; Visit Provider Surgery
PROC: 0DB64Z3 Excision of Stomach, Percutaneous Endoscopic Approach, Vertical (ICD-10-PCS; CPT 43845; principal; 2021-06-21 13:00)
DX: E66.01 Morbid (severe) obesity due to excess calories (principal); I42.0 Dilated cardiomyopathy; K76.0 Fatty (change of) liver, not elsewhere classified; I48.91 Unspecified atrial fibrillation; I10 Essential (primary) hypertension; K80.20 Calculus of gallbladder without cholecystitis without obstruction; K21.9 Gastro-esophageal reflux disease without esophagitis; F32.9 Major depressive disorder, single episode, unspecified; Z99.89 Dependence on other enabling machines and devices; G47.30 Sleep apnea, unspecified; Z20.822 Contact with and (suspected) exposure to COVID-19; Z68.41 Body mass index [BMI] 40.0-44.9, adult; Z79.01 Long term (current) use of anticoagulants; Z95.810 Presence of automatic (implantable) cardiac defibrillator; Z79.899 Other long term (current) drug therapy
CPT/HCPCS: 36415; 80048; 80053; 80061; 83036; 83525; 84443; 85014; 85018; 85025; 85610; 85730; 86140; 86850; 86900; 86901; 87635; 88307; 88342; 99024; A4649; C1758; J0131; J0690; J1100; J1170; J2250; J2370; J2405; J2765; J3010

== ENCOUNTER → 2021-06-29 07:30 | Outpatient (BNVA) | payer MEDICAID, SELFPAY | PROVIDERS: PCP Internal Medicine; Referring Provider Internal Medicine; Visit Provider Surgery | DX: Z98.84 Bariatric surgery status (principal); Z68.39 Body mass index [BMI] 39.0-39.9, adult | CPT/HCPCS: 99212 ==

== ENCOUNTER → 2021-07-29 08:00 | Outpatient (BNVA) | payer MEDICAID, SELFPAY | PROVIDERS: PCP Internal Medicine; Visit Provider Surgery | DX: E66.9 Obesity, unspecified (principal); Z68.38 Body mass index [BMI] 38.0-38.9, adult | CPT/HCPCS: 99212 ==